=== PATIENT | female | born 1935 | race Caucasian/White ===

== ENCOUNTER 2020-07-29 09:08 | Inpatient (IN) | payer MEDICARE ==
[~2020-07-29] VITALS: Ht 162.6 cm; Wt 36.0 kg
[2020-07-29] MEDS ORDERED: methylPREDNISolone SOD SUCC PF 125 MG/2 ML VIAL. IV ONE (09:15)
[2020-07-29] MEDS ORDERED: IPRATRPIUM/ALBUTEROL 0.5/2.5MG 3 ML NEBU. NEB ONE ×2 (09:15)
--- NOTE | 2020-07-29 09:21 | PHYS DOC ---
General Adult EDM: Chief Complaint: SHORTNESS OF BREATH HPI: HPI: 84-year-old female presents via EMS with shortness of breath. The patient's oxygen concentrator quit working last night. When EMS arrived her oxygen was in the 50s. They placed her on oxygen and it decreased into the 80s. The patient tells me that she feels short of breath, but was otherwise feeling well prior to this episode. She has no other specific complaints. She has a history of COPD oxygen dependent. Review of Systems: Review of Systems: Constitutional: Denies fever or chills Eyes: Denies change in visual acuity HENT: Denies nasal congestion or sore throat Respiratory: shortness of breath Cardiovascular: Denies chest pain or edema GI: Denies abdominal pain, nausea, vomiting, bloody stools or diarrhea : Denies dysuria Musculoskeletal: Denies back pain or joint pain Integument: Denies rash Neurologic: Denies headache, focal weakness or sensory changes Endocrine: Denies polyuria or polydipsia Lymphatic: Denies swollen glands Psychiatric: Denies depression or anxiety Physical Exam: PE: Constitutional: Well developed, well nourished, no acute distress, non-toxic appearance. [] HENT: Normocephalic, atraumatic, bilateral external ears normal, oropharynx moist, no oral exudates, nose normal. [] Eyes: PERRLA, EOMI, conjunctiva normal, no discharge. [] Neck: Normal range of motion, no tenderness, supple, no stridor. [] Cardiovascular: Heart rate regular rhythm, no murmur [] Lungs & Thorax: Bilateral breath sounds severely diminished. Prolonged expiratory phase [] Abdomen: Bowel sounds normal, soft, no tenderness, no masses, no pulsatile masses. [] Skin: Warm, dry, no erythema, no rash. [] Back: No tenderness, no CVA tenderness. [] Extremities: No tenderness, no cyanosis, no clubbing, ROM intact, no edema. [] Neurologic: Alert and oriented X 3, normal motor function, normal sensory function, no focal deficits noted. [] Psychologic: Affect normal, judgement normal, mood normal. [] EKG: EKG: Sinus rhythm, rate 100, normal axis, no ST elevation or depression. [] Radiology/Procedures: Radiology/Procedures: [] Impressions: EXAM: Chest, single view. HISTORY: Shortness of breath. COMPARISON: None. FINDINGS: A frontal view of the chest is obtained. There is diffuse interstitial infiltrate. There is no consolidation, pleural effusion or pneumothorax. There is a prominent cardiac silhouette. IMPRESSION: Diffuse interstitial infiltrate. Electronically signed by: Mari Diaz MD (07/29/2020 9:38 AM) [facility] DICTATED AND SIGNED BY: MARI DIAZ MD DATE: 07/29/2037 CC: GURDEEP FRANCIS MD; SHIRLEY WASHINGTON DO ~MTH0 0 Heart Score: C/O Chest Pain: N/A Risk Factors: Risk Factors: DM, Current or recent (<one month) smoker, HTN, HLP, family history of CAD, obesity. Risk Scores: Score 0 - 3: 2.5% MACE over next 6 weeks - Discharge Home Score 4 - 6: 20.3% MACE over next 6 weeks - Admit for Clinical Observation Score 7 - 10: 72.7% MACE over next 6 weeks - Early Invasive Strategies Course & Med Decision Making: Course & Med Decision Making Pertinent Labs and Imaging studies reviewed. (See chart for details) The patient's lungs are significantly decreased. I have ordered DuoNeb treatments and 125 Solu-Medrol. The patient's EKG is unremarkable. Her chest x-ray shows diffuse interstitial infiltrate. I will treat her with Rocephin and azithromycin. The patient's troponin is elevated 0.598. The patient has expressed desire to be DNR. I talked to her about her elevated troponin and she does not think she would want to go to the [facility]. I spoke with Dr. Mccormack and he has accepted the patient for admission. I also spoke with cardiology and they will follow the patient and are in agreement that her current respiratory status might make the [facility] difficult. They will reevaluate if she develops chest pain or her troponin worsens. The patient will be admitted to [facility]. [] Blaise Disclaimer: Blaise Disclaimer: This electronic medical record was generated, in whole or in part, using a voice recognition dictation system. Departure Departure: Impression: Primary Impression: Pneumonia Qualified Codes: J18.9 - Pneumonia, unspecified organism Additional Impression: NSTEMI (non-ST elevated myocardial infarction) Disposition: ADMITTED INPATIENT Admitting Physician: Fredy Mccormack Condition: GUARDED Referrals: GURDEEP FRANCIS MD (PCP) SHIRLEY WASHINGTON 5, 2021 09:21
--- NOTE | 2020-07-29 09:40 | RAD ---
EXAM: Chest, single view. HISTORY: Shortness of breath. COMPARISON: None. FINDINGS: A frontal view of the chest is obtained. There is diffuse interstitial infiltrate. There is no consolidation, pleural effusion or pneumothorax. There is a prominent cardiac silhouette. IMPRESSION: Diffuse interstitial infiltrate. Electronically signed by: Mari Esposito MD (07/29/2020 9:38 AM) [facility]
[2020-07-29 09:49] LABS: BASO % 0 % (0-3); EOS % 0 % (0-3); HEMATOCRIT 42.5 % (36.0-47.0); HEMOGLOBIN 13.8 g/dL (12.0-15.5); LYMPH # 0.5 x10^3/uL (1.0-4.8); LYMPH % 6 % (24-48); MEAN CORPUSCULAR HEMOGLOBIN 31 pg (25-35); MEAN CORPUSCULAR HGB CONC 33 g/dL (31-37); MEAN CORPUSCULAR VOLUME 95 fL (79-100); MONO # 0.7 x10^3/uL (0.0-1.1); MONO % 8 % (0-9); NEUT # 7.7 x10^3uL (1.8-7.7); NEUT % 86 % (31-73); PLATELET COUNT 227 x10^3/uL (140-400); RED BLOOD COUNT 4.49 x10^6/uL (3.50-5.40); RED CELL DISTRIBUTION WIDTH 15.2 % (11.5-14.5)
--- NOTE | 2020-07-29 09:51 | EKG ---
[address] [address] Test Date: 2020-07-29 Test Time: 09:35:59 Pat Name: MELISSA OAKES Department: Room: Gender: F [employer] Maker: MIN : [id number] Requested By: SHIRLEY WASHINGTON Order Number: [id number] Reading MD: Measurements Intervals Sunflower Rate: 100 P: 90 CO: 132 QRS: 64 QRSD: 74 T: 12 QT: 346 QTc: 449 Interpretive Statements SINUS RHYTHM ATRIAL PREMATURE COMPLEX(ES) NO SPECIFIC ECG ABNORMALITIES RI6.02 No previous ECG available for comparison
[2020-07-29 10:01] LABS: CALCIUM 8.9 mg/dL (8.5-10.1); CREATININE 0.6 mg/dL (0.6-1.0); GFR 95.5; POTASSIUM 4.8 mmol/L (3.5-5.1)
[2020-07-29 10:15] LABS: ALBUMIN 3.7 g/dL (3.4-5.0); ALBUMIN/GLOBULIN RATIO 1.2 (1.0-1.7); TOTAL PROTEIN 6.8 g/dL (6.4-8.2)
[2020-07-29] MEDS ORDERED: ASPIRIN CHEWABLE 81 MG TABLET. PO ONE (10:30)
[2020-07-29] MEDS ORDERED: ONDANSETRON PF 4 MG/2 ML VIAL. IVP PRN (11:00)
[2020-07-29] MEDS ORDERED: ENOXAPARIN 40 MG/0.4 ML SYRINGE. SQ ONE (11:00)
[2020-07-29] MEDS ORDERED: AZITHROMYCIN 500 MG in IV NORMAL SALINE 250ML 250 ML IV ONE (11:00)
[2020-07-29] MEDS ORDERED: IV NORMAL SALINE 250ML 250 ML ONE (11:16)
[2020-07-29] MEDS ORDERED: AZITHROMYCIN 500 MG VIAL. IV ONE (11:16)
[2020-07-29] MEDS ORDERED: cefTRIAXone SODIUM 1 GM VIAL ONE (11:16)
[2020-07-29] MEDS ORDERED: IV NORMAL SALINE 50ML 50 ML ONE (11:16)
[2020-07-29] MEDS: IPRATRPIUM/ALBUTEROL 0.5/2.5MG 3 ML NEBU. NEB SCH ×2 (11:16→16:00)
[2020-07-29 12:37] VITALS: BP 133/66
[2020-07-29] MEDS ORDERED: ASPI-889 PO (13:13)
[2020-07-29] MEDS ORDERED: OM3-1CAP PO (13:13)
[2020-07-29] MEDS ORDERED: SIMV20TA18 PO (13:17)
[2020-07-29] MEDS ORDERED: IPRA3AMP29 NEB (13:17)
[2020-07-29] MEDS ORDERED: IV DEXTROSE 5% 1,000 ML IV SCH (14:00)
[2020-07-29 14:21] LABS: BGAS PH 7.2 (7.35-7.45)
--- NOTE | 2020-07-29 14:32 | HP ---
ADMIT DATE: 07/29/2020 HISTORY OF PRESENT ILLNESS: The patient is an 84-year-old female patient who lives with her and who was brought today via EMS to Emergency Room with shortness of breath. Her oxygen concentrator quit working last night and when the EMS arrived, her oxygen saturation was in the 50s. They placed her on oxygen and increased to 18 to the 80. The patient stated that she feels short of breath, but she was otherwise feeling well prior to this episode. She has no other specific complaints when she arrived and was able to talk. She apparently has a history of COPD that is oxygen dependent and she was on 3 liters of oxygen by nasal cannula. According to , the patient is normally able to ambulate without assistance or assistive devices. She is able to talk; however, over the last 2 days according to him, she has not been eating or drinking, has not been out of bed. She was evaluated in the Emergency Room and her venous blood gas showed a pH of 7.30, pCO2 of 75, pO2 of 70 and her oxygen saturation was 91%. Her white cell count was normal and her chemistry showed that her sodium is high at 149. Her troponin was elevated at 0.598. The patient was admitted with [id number] hypoxic hypercapnic respiratory failure. PAST SURGICAL HISTORY: Unobtainable. The patient was actually when I saw her was unresponsive and her already left and he himself does not know what kind of surgery the patient has had before. ALLERGIES: She has no known drug allergies. MEDICATIONS: She is on ipratropium bromide/albuterol sulfate 3 mL by nebulizer 3 times a day, simvastatin 20 mg at bedtime, aspirin 81 mg once a day and omega 3 fatty acid once a day. FAMILY HISTORY: Noncontributory. SOCIAL HISTORY: She lives with her . She carries a diagnosis of COPD. Difficult to know as her left and she was unresponsive. PHYSICAL EXAMINATION: GENERAL: When I examined her, she was pale, cachectic, but no jaundice, cyanosis or thyromegaly. No jugular venous distention, no lower limb edema. VITAL SIGNS: Her heart rate was 88, blood pressure is 133/66, temperature was 98.2, respiratory rate was 20 and oxygen saturation was 100% on nonrebreather mask, but was cut down to 3 liters. HEAD, EYES, EARS, NOSE AND THROAT: Normocephalic, atraumatic. NECK: Supple. HEART: Showed normal first and second heart sounds, no gallop, murmur. CHEST: Showed central trachea, equal bilateral chest expansion, air entry, vesicular breath sounds. No crepitation or rhonchi. ABDOMEN: Scaphoid, soft, nontender. NEUROLOGIC: She was unresponsive, does not respond to verbal stimuli, does open her eyes spontaneously; however, she does respond by withdrawing to painful stimuli. LABORATORY DATA: On arrival showed a white cell count 9000, hemoglobin 14, hematocrit 42, MCV 95 and platelet count 227,000 with a manual differential showed 86% polymorphs, 6% lymphocytes, and 8% monocytes. Her sodium is 149, potassium 4.8, chloride 107, bicarbonate 34, anion gap of 8, BUN 50, creatinine was 0.6. Estimated GFR was 95 mL per minute. Her glucose 135, calcium was 8.9. Total bilirubin was normal. AST, ALT, alkaline phosphatase were normal. Her first set troponin was high at 0.598. Total protein 6.8, albumin 3.7. Her chest x-ray showed that the frontal view of the chest obtained. There is diffuse interstitial infiltrate. There is no consolidation, pleural effusion, or pneumothorax. There is a prominent cardiac silhouette. ASSESSMENT AND PLAN: The patient was admitted with community-acquired pneumonia, non-ST segment elevation myocardial infarction, acute hypoxic hypercapnic respiratory failure, chronic obstructive pulmonary disease that is oxygen dependent and hyperlipidemia. NATHAN DR: Justus TID: [id number]
--- NOTE | 2020-07-29 14:36 | RAD ---
EXAM: Head CT without contrast. HISTORY: Altered mental status. TECHNIQUE: Computed tomographic images of the head were obtained without contrast. *One or more of the following individualized dose reduction techniques were utilized for this examina tion: 1. Automated exposure control. 2. Adjustment of the mA and/or kV according to patient size. 3. Use of iterative reconstruction technique. COMPARISON: None. FINDINGS: There is no acute or subacute extra-axial or intraparenchymal hemorrhage. There is no mass effect or midline shift. There is no hydrocephalus. There are areas of decreased attenuation within the cerebral white matter, nonspecific and likely rel ated to chronic small vessel disease. The visualized portions of the orbits, paranasal sinuses and mastoid air cells are unremarkable. No s uspicious calvarial lesion is seen. There are tiny incidental parafalcine lipomas. IMPRESSION: No acute intracranial findings. Note is made that MRI is more sensitive for acute infarction. Electronically signed by: Mari Esposito MD (07/29/2020 2:34 PM) [id number]
[2020-07-29] MEDS ORDERED: MORPHINE SULFATE 2 MG/ML DISP.SYRIN. IV ONE (16:30)
[2020-07-30] MEDS ORDERED: AZITHROMYCIN 500 MG in IV NORMAL SALINE 250ML 250 ML IV SCH (12:00)
== END 2020-07-29 18:18 | disposition hospice, inpatient (51) | DRG 177 ==
LOC: ER 09:08 → 1 SOUTH 10:52
PROVIDERS: ADMIT Internal Medicine; ATTEND Internal Medicine
DX: J15.6 Pneumonia due to other Gram-negative bacteria (principal); I21.4 Non-ST elevation (NSTEMI) myocardial infarction; J96.21 Acute and chronic respiratory failure with hypoxia; J96.22 Acute and chronic respiratory failure with hypercapnia; J44.0 Chronic obstructive pulmonary disease with (acute) lower respiratory infection; J15.9 Unspecified bacterial pneumonia; E78.5 Hyperlipidemia, unspecified; Z99.81 Dependence on supplemental oxygen; Z66 Do not resuscitate
CPT/HCPCS: 36415; 70450; 71045; 80053; 82803; 82947; 83605; 84484; 85025; 93005; 94640; 96374; J0456; J0696; J1650; J2270; J2930; J7050; 99285-25

== ENCOUNTER 2020-07-29 18:18 | Inpatient (IN) | payer OTHER ==
[~2020-07-29] VITALS: Ht 154.9 cm; Wt 37.7 kg
[2020-07-29 12:37] VITALS: BP 133/66
[~2020-07-29 18:18] MED LIST: ASPI-889 PO; IPRA3AMP29 NEB; OM3-1CAP PO; SIMV20TA18 PO
[2020-07-29] MEDS ORDERED: ATROPINE 1% OPHTH SOLUTION 5ML BOTTLE. SL PRN ×2 (18:45)
[2020-07-29] MEDS ORDERED: MORPHINE SULFATE 30 MG/30 ML 30 ML IV PRN (18:45)
== END 2020-07-29 22:50 ==
LOC: 1 SOUTH 18:18
PROVIDERS: ADMIT Internal Medicine; ATTEND Internal Medicine
DX: I21.4 Non-ST elevation (NSTEMI) myocardial infarction (principal); J18.9 Pneumonia, unspecified organism; J96.01 Acute respiratory failure with hypoxia; J96.02 Acute respiratory failure with hypercapnia; J44.0 Chronic obstructive pulmonary disease with (acute) lower respiratory infection; E78.5 Hyperlipidemia, unspecified; Z99.81 Dependence on supplemental oxygen; Z51.5 Encounter for palliative care
CPT/HCPCS: J2270; Q5005